=== PATIENT | female | born 1950 | race Caucasian/White ===

== ENCOUNTER → 2021-07-23 | Outpatient (CLI) | payer MEDICARE, OTHER ==
[2021-07-23 16:50] LABS: BASOPHILS # (AUTO) 0.1 10^3/uL (0.0-0.1); BASOPHILS % (AUTO) 1 % (0-10); EOSINOPHILS # (AUTO) 0.6 10^3/uL (0.0-0.3); EOSINOPHILS % (AUTO) 7 % (0-10); HEMATOCRIT 48 % (35-52); HEMOGLOBIN 15.5 g/dL (11.5-16.0); LYMPHOCYTES # (AUTO) 1.7 10^3/uL (1.0-4.0); LYMPHOCYTES % (AUTO) 20 % (12-44); MEAN CORPUSCULAR HEMOGLOBIN 30 pg (25-34); MEAN CORPUSCULAR HGB CONC 33 g/dL (32-36); MEAN CORPUSCULAR VOLUME 92 fL (80-99); MEAN PLATELET VOLUME 9.5 fL (9.0-12.2); MONOCYTES # (AUTO) 0.6 10^3/uL (0.0-1.0); MONOCYTES % (AUTO) 7 % (0-12); NEUTROPHILS # (AUTO) 5.7 10^3/uL (1.8-7.8); NEUTROPHILS % (AUTO) 66 % (42-75); PLATELET COUNT 289 10^3/uL (130-400); WHITE BLOOD COUNT 8.6 10^3/uL (4.3-11.0)
[2021-07-23 16:59] LABS: ALBUMIN 4.3 GM/DL (3.2-4.5); CHLORIDE 105 MMOL/L (98-107); POTASSIUM 4.2 MMOL/L (3.6-5.0); SODIUM 141 MMOL/L (135-145)
--- NOTE | 2021-07-23 16:59 | Diagnostic Imaging Report ---
INDICATION: Palpitations. PA and lateral chest obtained at 04:56 p.m. Heart and mediastinal silhouette are normal in appearance. The lungs are clear. There is no pneumothorax or pleural fluid. IMPRESSION: Negative chest. Dictated by: Dictated on workstation # [id number]
[2021-07-23 17:00] LABS: CALCIUM 11.4 MG/DL (8.5-10.1)
[2021-07-23 17:01] LABS: GLUCOSE 103 MG/DL (70-105); TOTAL PROTEIN 7.2 GM/DL (6.4-8.2)
[2021-07-23 17:02] LABS: CARBON DIOXIDE 26 MMOL/L (21-32)
[2021-07-23 17:03] LABS: BILIRUBIN,TOTAL 0.4 MG/DL (0.1-1.0)
[2021-07-23 17:05] LABS: ALKALINE PHOSPHATASE 52 U/L (40-136); GFR ESTIMATED 71
[2021-07-23 17:06] LABS: BUN/CREATININE RATIO 23
[2021-07-23 17:08] LABS: ALANINE AMINOTRANSFERASE 34 U/L (0-55)
[2021-07-23 17:14] LABS: CREATINE KINASE MB 1.5 NG/ML (<6.6)
== END ==
LOC: RAD 16:09
PROVIDERS: ATTEND Physician Assistant
DX: I49.3 Ventricular premature depolarization (principal); L53.9 Erythematous condition, unspecified; E78.49 Other hyperlipidemia; H10.023 Other mucopurulent conjunctivitis, bilateral
CPT/HCPCS: 36415; 71046; 80053; 82553; 83874; 84484; 85025